=== PATIENT | male | born 1985 | race Caucasian/White ===

== ENCOUNTER 2023-11-15 05:58 | Day surgery (SDC) | payer SELFPAY, OTHER ==
[2023-11-15] VITALS (9 sets, daily range): BP systolic 110–133; BP diastolic 64–85; PULSE 63–77; RESP 16–18; TEMP 36.1–36.9; O2SAT 93–100; BMI 34.2
[2023-11-15] MEDS: Lactated Ringers 1,000 ML 15 ML IV ×2 (06:39→08:57)
--- NOTE | 2023-11-15 06:51 | HP.PCM_ITS ---
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 The patient has an incision in this area as well from exploratory laparotomy for trauma. Patient reports that it is sore especially when he plays softball and he would like it repaired before this season. He denies any nausea or vomiting. ROS General General: No weight change, appetite, fatigue, colon cancer, breast cancer or weakness HEENT HEENT: No difficulty swallowing, eye injury, eye surgery, swollen glands or hoarseness Endo Endocrine: No thyroid disease, diabetes mellitus, thyroid cancer, Hair loss, heat intolerance or cold intolerance Skin Skin: No rash or changing moles Musc Musculoskeletal: Yes back problems; No arthritis, rheumatoid arthritis, gout or joint pain Cardio Cardiovascular: No murmur, pacemaker, heart disease, atrial fibrillation, high blood pressure, heart attack, heart stent, palpitations, shortness of breat with exertion or chest pain Psych Psychiatric: No depression, anxiety or hearing voices Resp Respiratory: No shortness of breath, No sleep apnea, No cough, No COPD, No asthma, No emphysema and No wheezing Gastro Gastrointestinal: No abdominal pain, No nausea or vomiting, No diarrhea, No constipation, No blood in stool, No acid reflux, No hemorrhoids, No ulcers, No gallbladder problem and No black,tarry stools Efren Hematologic: No blood thinners, No blood disorders, No bleeding, No anemia and No blood clots Neuro Neurologic: No numbness and No weakness Exam Const General: cooperative Orientation: alert and oriented x3 HENMT Head: normal to inspection Neck Neck: normal visual inspection and full ROM Chest Chest palpation & inspection: normal inspection of the chest Resp Effort & Inspection: normal respiratory effort Auscultation: clear to auscultation bilaterally Cardio Rate: regular rate Rhythm: regular rhythm GI Inspection: non-distended Palpation: soft, hernia ventral and nontender Skin General: no rashes or lesions noted Neuro General: patient alert and patient oriented x3 Extrem General: full ROM Psych Appearance: grossly normal Mental Status: mental status grossly normal Assessment and Plan Assessment and Plan (1) Umbilical hernia: Status: Acute Qualifiers: Obstruction and gangrene presence: without obstruction or gangrene Qualified Code(s): K42.9 - Umbilical hernia without obstruction or gangrene Plan: The patient has a small hernia at the umbilical area which is nonreducible. It seems to contain fat. I am unsure if this is from his prior incision or if this is an umbilical hernia. I discussed open repair with him with possible mesh. I explained that if the defect were over a centimeter I recommend mesh. I discussed the procedure in detail with the patient as well as the risks including not limited to bleeding, infection, injury to underlying organs. Patient understands the risks and is willing to proceed. Yamil Logan MD Pager: [facility] [address] [place] [address], [address] [place] [address] Office: I have examined the patient and the H&P has been reviewed. There are no clinical changes since date of exam.
[2023-11-15] MEDS: Cefazolin 2 GM in 0.9% Normal Saline (100mL Bag) 100 ML IV (07:30)
[2023-11-15] MEDS: Bupivacaine 0.25% 30 ML Vial (08:05)
--- NOTE | 2023-11-15 08:17 | OP.PCM_ITS ---
Report of Operation Date of Procedure: 11/15/23 Pre-Operative Diagnosis: Umbilical hernia less than 3 cm, incarcerated Post-Operative Diagnosis: Same Surgery/Procedure Performed:: Incarcerated umbilical hernia repair with mesh Type of Anesthesia: General/Regional Specimen's removed: None Estimated Blood Loss (mL): 5 Description of Procedure: Patient was brought back to the operating room and general anesthesia was induced. The abdomen was prepped and draped in usual sterile fashion. A curvilinear incision was marked to the left of his umbilicus due to his prior incision. It was injected with local anesthetic and incised with a scalpel. Electrocautery was used to dissect flaps on either side to dissect the umbilicus away from the hernia sac. Once the hernia sac was circumferentially dissected it was attempted to be reduced but it was unable to be reduced. The hernia defect had to be opened to allow further reduction of the hernia contents. Once the hernia contents were reduced the fascia was elevated and the preperitoneal space was developed. The hernia defect was over 1 cm so small Ventralex mesh was selected. The mesh was placed in the preperitoneal space and sutured to the anterior fascia using 2-0 PDS suture. The area was irrigated and suctioned dry. Next the fascia was reapproximated in a horizontal fashion using interrupted 0 Nurolon sutures. The subcutaneous tissue was irrigated and suctioned dry as well. Hemostasis was obtained using electrocautery. The incision was closed with interrupted 3-0 Vicryl sutures and a running 4-0 Monocryl suture. Steri- Strips and bandages were applied. Patient was awoken and taken to PACU in stable condition and tolerated the procedure well. Grafts/Implants Used: Small Ventralex ST mesh Admit VTE Documentation VTE Mechan Device Prophylaxis: SCD's
--- NOTE | 2023-11-15 08:21 | DCINST_ITS ---
Discharge Instructions Procedure Hernia Diet Discharge Diet: Light diet - advance as tolerated Activity Discharge Activity: May Not Drive (for 2-3 days or while taking narcotic pain meds.) and May Shower (with the bandage in place 1-2 days after surgery.) Lifting Restrictions: 20 pounds for 4 weeks. Additional Activity Instructions:: Climbing stairs is fine, walking is encouraged. Sitting in bed may be uncomfortable. Sitting up using your lateral muscles (sitting up sideways) is usually more comfortable. Do not drive, work heavy equipment of sign legal documents for 24 hours. Pain medications may cause nausea, you should typically eat light foods as you take your pain medications. Pain medications may also cause constipation. If you have difficulty with this, discuss with your doctor. Take ibuprofen and Tylenol alternating for pain, oxycodone for uncontrolled pain. Dressing / Incision Call your doctor if your incision/area has: Continuous Slow Oozing, Sudden Increased Bleeding, Increased Pain/ Swelling, Increased Redness and Foul Smelling Discharge Call your doctor if you observe: Fever of 101 or Higher Suture Line Care: Avoid Pulling/Pushing and Avoid Pinching/Bending Remove Dressing in: 2 days (Remove clear bandages in 2 days, remove Steri-Strips in 7 to 10 days.) Follow Up Care Please Follow Up With: Yamil Logan MD When: Please call to schedule 2 week follow up appointment. [phone] Test Results: Test results from this visit will be discussed in further detail at your follow- up appointment, if applicable. Discharge Plan Admission Attending Provider: Yamil Logan Primary Care Provider: Kd Aguirre Discharge Orders/Prescriptions Prescriptions: New acetaminophen 325 mg Tablet 650 mg PO Q4H PRN PRN (Reason: Pain Or Fever) Qty: 0 0RF oxycodone 5 mg Tablet 5 - 10 mg PO Q4H PRN PRN (Reason: Pain Score 4-10/10) 5 Days Qty: 15 0RF No Action No Known Home Medications Referrals / Follow Up: Kd Aguirre DO [Primary Care Provider] - Disposition Disposition (needs filled in before D/C Order can be placed): Home, Self Care
[2023-11-15] MEDS: oxyCODONE 5 MG Tablet PO (10:34)
== END 2023-11-15 11:04 | disposition home or self-care (01) ==
LOC: SDC 06:02 → AC 06:03
PROVIDERS: PCP Family Medicine; Referring Provider Surgery; Visit Provider Surgery
PROC: (CPT 49592; principal; 2023-11-15 07:15)
DX: K42.0 Umbilical hernia with obstruction, without gangrene (principal); Z87.891 Personal history of nicotine dependence
CPT/HCPCS: 49592; 00830; J7120; C1781; J2405